=== PATIENT | female | born 1950 | race Caucasian/White ===

== ENCOUNTER 2018-05-08 01:15 | Observation (INO) ==
--- NOTE | 2018-05-08 01:55 | ED ---
HPI General Chief complaint: Shortness of Breath/Dyspnea Stated complaint: Diff breathing Time Seen by Provider: 05/08/18 01:54 Source: patient History of Present Illness HPI narrative: The patient is a 67 year old female who presents to the [facility] emergency department with a history of cough and sore throat that began a week ago. She saw Dr. Ribeiro's PA and was given a prescription of Guaiatussin and an antibiotic. She did not take the antibiotic as she was told that it was viral, however she started the Guaiatussin on Sunday. She reports that the cough seemed to be improving and was less productive. Then for the last 2 days she began to have shortness of breath at night. Her cough is productive of yellow to brown sputum. She feels like she cannot take a deep breath. She denies having any wheezing. She denies using any for being diagnosed with COPD. She reports that she does smoke a pack of cigarettes per day. The patient incidentally is also on exogenous estrogen for difficulty sleeping and hot flashes. She reports that she has been on this for years. She reports that she went through menopause in her 40s. On review of systems otherwise, she denies having any known recent fevers, neck pain, chest pain, abdominal pain, vomiting, diarrhea, urinary symptoms, or neurologic symptoms. Related Data Home Medications Medication Instructions Recorded Confirmed No Known Home Medications 05/08/18 05/08/18 Allergies Allergy/AdvReac Type Severity Reaction Status Date / Time No Known Allergies Allergy Verified 05/08/18 01:19 Review of Systems ROS Unobtainable All other systems reviewed negative except as stated in HPI [facility] Medical History Medical History Hypercholesteremia (Acute) Surgical History Surgical History H/O knee surgery (Acute) Hx of appendectomy (Acute) Social History Social History Substance History: No History of Abuse Smoking Status: Current every day smoker Tobacco Type: Cigarettes Packs Per Day: 1 Cigarettes Per Day: 20.0 How Often Do You Have a Drink Containing Alcohol: 4 or more times a week Recent Travel in [facility] within the Last 8 Weeks: No Recent Out of Country Travel within the Last 8 Weeks: No Immunization History Tetanus Immunization: Unsure Hx Influenza Vaccine This Season: No Exam HENTN Head: normocephalic and atraumatic Nose: no nasal discharge and no epistaxis Mouth: moist mucous membranes Eyes Sclera: normal sclerae Pupils: PERRL Neck Neck: trachea midline and no JVD Resp Effort & Inspection: no use of accessory muscles Auscultation: no crackles, no rhonchi and wheezes (Soft expiratory wheezes audible bilaterally. Decreased breath sounds in the bases. No rhonchi or crackles.) Cardio Rate: regular rate Rhythm: regular rhythm Heart Sounds: no murmurs GI Inspection: non-distended Palpation: soft, no hepatosplenomegaly and nontender Skin General: dry skin (warm) Neuro General: alert and awake Cranial Nerves: other (No evidence of facial asymmetry) Speech: speech normal Motor: no movement abnormalities noted Extrem General: normal to inspection, no clubbing, no cyanosis, no edema and other (No calf tenderness on palpation. Negative Homans sign. No palpable cords.) Psych Mood: congruent mood Affect: normal affect Judgment: judgment good Course Consultations Consultation #1: The patient's case including history, pertinent physical examination findings, and laboratory studies were discussed with Dr. Nj. It was agreed that the patient would be admitted to the hospitalist service. Initial Documented Vital Signs Temperature 97.8 F 05/08/18 01:19 Pulse Rate 92 H 05/08/18 01:19 Respiratory Rate 18 05/08/18 01:19 Blood Pressure 141/92 H 05/08/18 01:19 Pulse Oximetry 97 05/08/18 01:19 Last Documented Vital Signs Temperature 97.7 F 05/08/18 07:28 Pulse Rate 96 H 05/08/18 07:28 Respiratory Rate 18 05/08/18 07:28 Blood Pressure 127/90 05/08/18 07:28 Pulse Oximetry 95 05/08/18 07:28 Medical Decision Making MDM Narrative Medical decision making narrative: During the course of the patient's emergency department visit, the patient's history, examination, and differential diagnosis were reviewed with the patient. The patient was placed on a phototypesetting equipment monitor with oximetry and frequent blood pressure monitoring. The patient had IV access obtained and blood work sent for analysis. Diagnostic workup was begun in order to discern possible causes in her differential which include pulmonary embolism, versus acute coronary syndrome, versus pneumonia, versus COPD exacerbation, versus CHF. The patient was initially provided a DuoNeb 1, aspirin 324 mg p.o. 1 Laboratory studies are remarkable for a white count of 9.9, platelets 376, monocytosis at 8.1, hemoglobin of 13.3, PT 10.6, PTT 26.4, d-dimer is elevated at 0.83, CTA to rule out PE has been ordered. Chemistry is remarkable for troponin I of less than 0.02, GFR 71, chloride 110, CO2 19.9, BUN 19, BNP 1307, AST is 93, albumin 3.2. A chest x-ray showed cardiomegaly with mild congestive heart failure. Because of this the patient was given nitroglycerin 1 inch to the chest wall, Lasix 40 mg IV. CTA to rule out PE showed no evidence of pulmonary embolism, probable mild congestive heart failure with cardiomegaly small bilateral pleural effusions and mostly interstitial edema. Patient is also noted to have moderate coronary calcifications. The patient will be admitted to the hospital for new onset congestive heart failure The patient's results were discussed with the patient, including the plan of care. I explained that further testing and/ or monitoring is indicated based on the patient's history, examination, and/ or laboratory findings. Therefore, I recommended admission for additional evaluation. The patient expressed understanding and was agreeable with this plan. The patient was admitted to the hospital in stable condition and sent to a bed under the care of [facility] service. Differential Diagnosis Differential Diagnosis: pulmonary embolism, versus acute coronary syndrome, versus pneumonia, versus COPD exacerbation, versus CHF. Medical Records Medical records reviewed: Yes I reviewed the patient's medical records. Lab Data Lab results reviewed: Yes I reviewed the patient's lab results. Result diagrams: 05/08/18 02:20 05/08/18 02:20 Lab Results 05/08/18 05/08/18 05/08/18 Range/Units 02:20 02:20 02:20 WBC 9.9 (4.0-11.0) th/mm3 RBC 4.18 (4.00-5.30) mil/mm3 Hgb 13.3 (11.6-15.3) gm/dL Hct 39.2 (35.0-46.0) % MCV 93.8 (80.0-100.0) fL MCH 31.9 (27.0-34.0) pg MCHC 34.0 (32.0-36.0) % RDW 13.3 (11.6-17.2) % Plt Count 376 (150-450) th/mm3 MPV 8.0 (7.0-11.0) fL Neut % (Auto) 67.4 (16.0-70.0) % Lymph % (Auto) 21.2 (9.0-44.0) % [place] % (Auto) 8.1 H (0.0-8.0) % Eos % (Auto) 2.0 (0.0-4.0) % Baso % (Auto) 1.3 (0.0-2.0) % Neut # (Auto) 6.7 (1.8-7.7) th/mm3 Lymph # (Auto) 2.1 (1.0-4.8) th/mm3 [place] # (Auto) 0.8 (0.0-0.9) th/mm3 Eos # (Auto) 0.2 (0.0-0.4) th/mm3 Baso # (Auto) 0.1 (0.0-0.2) th/mm3 WBC Differential . Differential Comment Auto diff final PT 10.6 (9.8-11.6) sec INR 1.0 Ratio APTT 26.4 (24.3-30.1) sec D-Dimer Quant (PE/DVT) 0.83 H (0.00-0.50) mg/L FEU Sodium (136-145) meq/L Potassium (3.5-5.1) meq/L Chloride (98-107) meq/L Carbon Dioxide (21.0-32.0) meq/L Anion Gap (5-15) meq/L BUN (7-18) mg/dL Creatinine (0.50-1.00) mg/dL Estimated GFR (>89) mL/min Random Glucose (74-106) mg/dL Calcium (8.5-10.1) mg/dL Total Bilirubin (0.2-1.0) mg/dL AST (15-37) U/L ALT (10-53) U/L Alkaline Phosphatase (45-117) U/L Total Creatine Kinase (26-192) U/L CK-MB (CK-2) (0.5-3.6) ng/mL Troponin I (0.02-0.05) ng/mL B-Natriuretic Peptide 1307 H (0-100) pg/mL Total Protein (6.4-8.2) g/dL Albumin (3.4-5.0) g/dL Lipase (73-393) U/L 05/08/18 Range/Units 02:20 WBC (4.0-11.0) th/mm3 RBC (4.00-5.30) mil/mm3 Hgb (11.6-15.3) gm/dL Hct (35.0-46.0) % MCV (80.0-100.0) fL MCH (27.0-34.0) pg MCHC (32.0-36.0) % RDW (11.6-17.2) % Plt Count (150-450) th/mm3 MPV (7.0-11.0) fL Neut % (Auto) (16.0-70.0) % Lymph % (Auto) (9.0-44.0) % [place] % (Auto) (0.0-8.0) % Eos % (Auto) (0.0-4.0) % Baso % (Auto) (0.0-2.0) % Neut # (Auto) (1.8-7.7) th/mm3 Lymph # (Auto) (1.0-4.8) th/mm3 [place] # (Auto) (0.0-0.9) th/mm3 Eos # (Auto) (0.0-0.4) th/mm3 Baso # (Auto) (0.0-0.2) th/mm3 WBC Differential Differential Comment PT (9.8-11.6) sec INR Ratio APTT (24.3-30.1) sec D-Dimer Quant (PE/DVT) (0.00-0.50) mg/L FEU Sodium 140 (136-145) meq/L Potassium 4.3 (3.5-5.1) meq/L Chloride 110 H (98-107) meq/L Carbon Dioxide 19.9 L (21.0-32.0) meq/L Anion Gap 10 (5-15) meq/L BUN 19 H (7-18) mg/dL Creatinine 0.81 (0.50-1.00) mg/dL Estimated GFR 71 L (>89) mL/min Random Glucose 104 (74-106) mg/dL Calcium 8.5 (8.5-10.1) mg/dL Total Bilirubin 0.3 (0.2-1.0) mg/dL AST 93 H (15-37) U/L ALT 48 (10-53) U/L Alkaline Phosphatase 110 (45-117) U/L Total Creatine Kinase 109 (26-192) U/L CK-MB (CK-2) 1.8 (0.5-3.6) ng/mL Troponin I Less than 0.02 L (0.02-0.05) ng/mL B-Natriuretic Peptide (0-100) pg/mL Total Protein 6.7 (6.4-8.2) g/dL Albumin 3.2 L (3.4-5.0) g/dL Lipase 74 (73-393) U/L Imaging Data Radiologist's impression: Chest X-Ray 05/08/18 02:12 CONCLUSION: Mild congestive heart failure. Chest CTA 05/08/18 03:02 CONCLUSION: 1. Probable mild congestive heart failure with cardiomegaly, small bilateral pleural effusions and mostly interstitial edema. 2. Moderate coronary calcifications. ECG Data Attestation: I personally reviewed and interpreted this ECG as follows: Interpretation: The patient had an EKG done that shows a sinus rhythm with occasional ventricular premature complexes heart rate of 82, QRS duration 106 ms , QTC [address]-T wave abnormalities, T waves are inverted in V6, downsloping ST segments in V6. Discharge Plan Discharge Disposition Patient Disposition: 30 Still Patient Discharge Details Diagnosis: New onset of congestive heart failure Physicians Team ED Provider: Divya Jamison Primary Care Provider: Christian Westbrook Attending Provider: Ela Mike Other Providers: Chino Fan Status ED Status: Admitted Observation Patient
[2018-05-08 02:42] LABS: Baso # (Auto) 0.1 th/mm3 (0.0-0.2); Baso % (Auto) 1.3 % (0.0-2.0); Eos # (Auto) 0.2 th/mm3 (0.0-0.4); Hematocrit 39.2 % (35.0-46.0); Hemoglobin 13.3 gm/dL (11.6-15.3); Lymph # (Auto) 2.1 th/mm3 (1.0-4.8); Lymph % (Auto) 21.2 % (9.0-44.0); Mean Corpuscular Hemoglobin 31.9 pg (27.0-34.0); Mean Corpuscular Volume 93.8 fL (80.0-100.0); Mono # (Auto) 0.8 th/mm3 (0.0-0.9); Mono % (Auto) 8.1 % (0.0-8.0); Neut # (Auto) 6.7 th/mm3 (1.8-7.7); Neut % (Auto) 67.4 % (16.0-70.0); Platelet Count 376 th/mm3 (150-450); Red Blood Count 4.18 mil/mm3 (4.00-5.30); Red Cell Distribution Width 13.3 % (11.6-17.2); White Blood Count 9.9 th/mm3 (4.0-11.0)
[2018-05-08 02:52] LABS: Activated Partial Thrombo Time 26.4 sec (24.3-30.1); Prothrombin Time 10.6 sec (9.8-11.6)
[2018-05-08 02:53] LABS: D-Dimer 0.83 mg/L FEU (0.00-0.50)
[2018-05-08 03:01] LABS: Alanine Aminotransferase 48 U/L (10-53); Albumin 3.2 g/dL (3.4-5.0); Anion Gap 10 meq/L (5-15); Aspartate Aminotransferase 93 U/L (15-37); Blood Urea Nitrogen 19 mg/dL (7-18); Calcium 8.5 mg/dL (8.5-10.1); Carbon Dioxide 19.9 meq/L (21.0-32.0); Chloride 110 meq/L (98-107); Glomerular Filtration Rate 71 mL/min (>89); Glucose,Random 104 mg/dL (74-106); Lipase 74 U/L (73-393); Potassium 4.3 meq/L (3.5-5.1); Sodium 140 meq/L (136-145)
[2018-05-08 03:05] LABS: Alkaline Phosphatase 110 U/L (45-117); Creatine Kinase 109 U/L (26-192); Total Protein 6.7 g/dL (6.4-8.2)
--- NOTE | 2018-05-08 03:06 | XR ---
EXAM DATE: 05/08/2018 2:47 AM EDT AGE/SEX: 67 years / Female INDICATIONS: . Shortness of breath. CLINICAL DATA: This is the patient's initial encounter. Patient reports that signs and symptoms have been present for 3 days and indicates a pain score of 0/10. MEDICAL/SURGICAL HISTORY: None. None. COMPARISON: No prior exams available for comparison. FINDINGS: There is cardiomegaly. Mild edema pattern at the lung bases with small effusions. No pneumothorax. No acute bony abnormalities identified. CONCLUSION: Mild congestive heart failure. Electronically signed by: Luke Sanders MD 05/08/2018 3:05 AM EDT
[2018-05-08 03:18] LABS: Creatine Kinase MB 1.8 ng/mL (0.5-3.6)
--- NOTE | 2018-05-08 04:03 | CT ---
EXAM DATE: 05/08/2018 3:37 AM EDT AGE/SEX: 67 years / Female INDICATIONS: Shortness of breath and cough. CLINICAL DATA: This is the patient's initial encounter. Patient reports that signs and symptoms have been present for 1 week and indicates a pain score of 5/10. MEDICAL/SURGICAL HISTORY: Vertigo. None. RADIATION DOSE: 9.10 CTDI (mGy) COMPARISON: No prior exams available for comparison. TECHNIQUE: Volumetric scanning was performed using a multi-row detector CT scanner during bolus infu mateo of 55 ml Omnipaque 350 (iohexol) nonionic water-soluble contrast as a single exam dose. The beck a was post processed with a variety of visualization algorithms including full volume maximum intensi ty projection and sliding thin slab reformation. Using automated exposure control and adjustment of the mA and/or kV according to patient size, radiation dose was kept as low as reasonably achievable t o obtain optimal diagnostic quality images. DICOM format image data is available electronically for review and comparison. FINDINGS: There is interlobular septal thickening in the lungs. Mild groundglass opacity with small bilateral p leural effusions. Findings probably represent mild pulmonary edema. Heart size enlarged. Moderate cor onary calcifications. No filling defects to suggest pulmonary embolic disease. No acute findings in the upper abdomen. CONCLUSION: 1. Probable mild congestive heart failure with cardiomegaly, small bilateral pleural effusions and m ostly interstitial edema. 2. Moderate coronary calcifications. Electronically signed by: Luke Sanders MD 05/08/2018 4:01 AM EDT
[2018-05-08] MEDS ORDERED: Iohexol 350 MG/ML 50 ML Vial (for Cath Lab) IVCONTRAST ONE (04:42)
[2018-05-08] MEDS ORDERED: Acetaminophen 325 MG Tablet PO PRN (05:13)
[2018-05-08] MEDS ORDERED: Bisacodyl 10 MG Supp RECTAL PRN (05:13)
[2018-05-08] MEDS ORDERED: Temazepam 15 MG Capsule PO PRN (05:13)
--- NOTE | 2018-05-08 05:21 | P.HP ---
History of Present Illness Service: [facility] Primary Care Physician: Christian Westbrook MD Chief Complaint: SOB History of Present Illness: 67-year-old female with a past medical history significant for hyperlipidemia presents the emergency department for evaluation of shortness of breath. The patient reports that approximately 1 week ago she had URI symptoms including a sore throat and cough. She went to see her PCP last Sunday who gave her a cough syrup that did not seem to help. Approximately 2 days ago the patient reports that she started having shortness of breath worse with lying flat. She states she has been unable to sleep. She has no history of coronary artery disease or congestive heart failure. She denies any chest pain. No abdominal pain. No nausea/vomiting/diarrhea. Positive productive cough that is improving. No fever/chills. No lateralizing signs/symptoms. Inpatient Certification: I certify that the inpatient services were ordered in accordance with Medicare regulations governing the order. This includes certification that hospital inpatient services are reasonable and necessary and in the case of services not specified as inpatient-only under 42 CFR 419.22(n), that they are appropriately provided as inpatient services in accordance to with the 2-midnight benchmark under 43 CFR 412.3(e) [facility] - History History Provided By: Patient - Medical History Medical History: Medical History (Last Reviewed 05/08/18 @ 02:06 by Diyva Jamison MD) Hypercholesteremia - Surgical History Surgical History: Surgical History (Last Reviewed 05/08/18 @ 02:06 by Divya Jamison MD) H/O knee surgery Hx of appendectomy - Tobacco History Tobacco Use In Past 30 Days: Yes Smoking Status: Current every day smoker Tobacco Type: Cigarettes Packs Per Day: 1 Cigarettes Per Day: 20.0 - Alcohol History How Often Do You Have a Drink Containing Alcohol: 4 or more times a week - Substance Use History Substance History: No History of Abuse - Travel History Recent Travel in the [place] Within the Last 8 Weeks: No Recent Travel Out of the Country Within the Last 8 Weeks: No - Immunization History Tetanus Immunization: Unsure Hx Influenza Vaccine This Season: No Medications and Allergies Active Medications: Active Medications Acetaminophen (Tylenol) 650 mg PO Q4H PRN PRN Reason: Temp > 100.4 Al Hydroxide/Mg Hydroxide (Milk Of Magnesia Liq) 30 ml PO Q12H PRN PRN Reason: Mild Constipation Aspirin (Aspirin) 325 mg PO DAILY ABIOLA Bisacodyl (Dulcolax Supp) 10 mg RECTAL DAILY PRN PRN Reason: SEVERE CONSITIPATION Furosemide (Lasix Inj) 40 mg IV.PUSH BID@0900,1800 [facility] Heparin Sodium (Porcine) (Heparin Inj) 5,000 units SQ Q12H ABIOLA Lactulose (Lactulose Liq) 30 ml PO DAILY PRN PRN Reason: SEVERE CONSITIPATION Ondansetron HCl (Zofran Inj) 4 mg IV.PUSH Q6H PRN PRN Reason: NAUSEA OR VOMITING Senna/Docusate Sodium (Jess-Colace) 1 tab PO BID ABIOLA Sennosides (Senokot) 17.2 mg PO Q12H PRN PRN Reason: Moderate Constipation Sodium Chloride (Ns Flush) 2 ml IV.FLUSH UNSCH PRN PRN Reason: FLUSH AFTER USING IV ACCESS Temazepam (Restoril) 15 mg PO HS PRN PRN Reason: INSOMNIA Allergies Allergy/AdvReac Type Severity Reaction Status Date / Time No Known Allergies Allergy Verified 05/08/18 01:19 Home Medications Medication Instructions Recorded Confirmed Type No Known Home Medications 05/08/18 05/08/18 History Exam Vital signs: Vital Signs 05/08/18 01:19 05/08/18 01:24 05/08/18 02:27 Temperature 97.8 F Pulse Rate 92 H 78 92 H Respiratory Rate 18 18 Blood Pressure 141/92 H 157/104 H Pulse Oximetry 97 97 05/08/18 03:27 Temperature Pulse Rate Respiratory Rate Blood Pressure Pulse Oximetry 93 L Intake & Output 05/07/18 05/07/18 05/08/18 06:59 18:59 06:59 Weight 63.503 kg Narrative: Gen.: No acute distress Head: Normocephalic. Atraumatic. EENT: Pupils equal round and reactive to light. Nose without drainage. Airway intact. Throat without injection. Cardiovascular: Regular rate and rhythm. No murmurs, rubs or gallops. Respiratory: Bilateral crackles. Abdomen: Soft, nontender, nondistended. No peritoneal signs. Musculoskeletal: No gross deformities. No edema. Skin: No obvious rashes or erythema. Neuro: Sensory and motor grossly intact. Cranial nerves II through XII grossly intact. Psych: Appropriate mood and affect Results - Labs CBC & Chem 7: 05/08/18 02:20 05/08/18 02:20 Labs: Laboratory Results - last 24 hr 05/08/18 05/08/18 05/08/18 02:20 02:20 02:20 WBC 9.9 RBC 4.18 Hgb 13.3 Hct 39.2 MCV 93.8 MCH 31.9 MCHC 34.0 RDW 13.3 Plt Count 376 MPV 8.0 Neut % (Auto) 67.4 Lymph % (Auto) 21.2 [place] % (Auto) 8.1 H Eos % (Auto) 2.0 Baso % (Auto) 1.3 Neut # (Auto) 6.7 Lymph # (Auto) 2.1 [place] # (Auto) 0.8 Eos # (Auto) 0.2 Baso # (Auto) 0.1 WBC Differential . Differential Comment Auto diff final PT 10.6 INR 1.0 APTT 26.4 D-Dimer Quant (PE/DVT) 0.83 H Sodium Potassium Chloride Carbon Dioxide Anion Gap BUN Creatinine Estimated GFR Random Glucose Calcium Total Bilirubin AST ALT Alkaline Phosphatase Total Creatine Kinase CK-MB (CK-2) Troponin I B-Natriuretic Peptide 1307 H Total Protein Albumin Lipase 05/08/18 02:20 WBC RBC Hgb Hct MCV MCH MCHC RDW Plt Count MPV Neut % (Auto) Lymph % (Auto) [place] % (Auto) Eos % (Auto) Baso % (Auto) Neut # (Auto) Lymph # (Auto) [place] # (Auto) Eos # (Auto) Baso # (Auto) WBC Differential Differential Comment PT INR APTT D-Dimer Quant (PE/DVT) Sodium 140 Potassium 4.3 Chloride 110 H Carbon Dioxide 19.9 L Anion Gap 10 BUN 19 H Creatinine 0.81 Estimated GFR 71 L Random Glucose 104 Calcium 8.5 Total Bilirubin 0.3 AST 93 H ALT 48 Alkaline Phosphatase 110 Total Creatine Kinase 109 CK-MB (CK-2) 1.8 Troponin I Less than 0.02 L B-Natriuretic Peptide Total Protein 6.7 Albumin 3.2 L Lipase 74 - Imaging Impressions Chest X-Ray 05/08/18 02:12 CONCLUSION: Mild congestive heart failure. Chest CTA 05/08/18 03:02 CONCLUSION: 1. Probable mild congestive heart failure with cardiomegaly, small bilateral pleural effusions and mostly interstitial edema. 2. Moderate coronary calcifications. Caprini VTE Risk Assessment Caprini VTE Risk Assessment: Moderate/High Risk (score >= 2) Caprini Risk Assessment Model: Point Value = 1 Point Value = 2 Point Value = 3 Point Value = 5 Age 41-60 Minor surgery BMI > 25 kg/m2 Swollen legs Varicose veins or History of unexplained or recurrent spontaneous Oral contraceptives or hormone replacement Sepsis (< 1 month) Serious lung disease, including pneumonia (< 1 month) Abnormal pulmonary function Acute myocardial infarction Congestive heart failure (< 1 month) History of inflammatory bowel disease Medical patient at bed rest Age 61-74 Arthroscopic surgery Major open surgery (> 45 min) Laparoscopic surgery (> 45 min) Malignancy Confined to bed (> 72 hours) Immobilizing plaster cast Central venous access Age >= 75 History of VTE Family history of VTE Factor V Leiden Prothrombin [id number] Lupus anticoagulant Anticardiolipin antibodies Elevated serum homocysteine Heparin-induced thrombocytopenia Other congenital or acquired thrombophilia Stroke (< 1 month) Elective arthroplasty Hip, pelvis, or leg fracture Acute spinal cord injury (< 1 month) Prophylaxis Regimen: Total Risk Factor Score Risk Level Prophylaxis Regimen 0-1 Low Early ambulation 2 Moderate Order ONE of the following: *Sequential Compression Device (SCD) *Heparin 5000 units SQ BID 3-4 Higher Order ONE of the following medications: *Heparin 5000 units SQ TID *Enoxaparin/Lovenox 40 mg SQ daily (WT < 150 kg, CrCl > 30 mL/min) *Enoxaparin/Lovenox 30 mg SQ daily (WT < 150 kg, CrCl > 10-29 mL/min) *Enoxaparin/Lovenox 30 mg SQ BID (WT < 150 kg, CrCl > 30 mL/min) AND/OR *Sequential Compression Device (SCD) 5 or more Highest Order ONE of the following medications: *Heparin 5000 units SQ TID (Preferred with Epidurals) *Enoxaparin/Lovenox 40 mg SQ daily (WT < 150 kg, CrCl > 30 mL/min) *Enoxaparin/Lovenox 30 mg SQ daily (WT < 150 kg, CrCl > 10-29 mL/min) *Enoxaparin/Lovenox 30 mg SQ BID (WT < 150 kg, CrCl > 30 mL/min) AND *Sequential Compression Device (SCD) Assessment and Plan - Plan Assessment/plan: 1. New-onset CHF Patient with BNP of 1307 Chest x-ray significant for mild congestive heart failure CTA negative for PE but positive for mild congestive heart failure with cardiomegaly and small bilateral pleural effusions with interstitial edema Moderate coronary calcifications No history of coronary artery disease or CHF IV Lasix Echo pending Cardiology consulted, appreciate recommendations ACS rule out pending; serial troponins/EKGs 2. Hyperlipidemia Continue home statin once medications reconciled FEN N.p.o. Electrolytes: Monitor and replete as needed Heparin
[2018-05-08] MEDS: Heparin - SQ 10,000 UNITS/ML Vial SQ SCH ×2 (06:24→20:53)
[2018-05-08] MEDS: Senna/Docusate Sodium 8.6/50 MG Tablet PO SCH ×2 (08:35→20:54)
[2018-05-08] MEDS ORDERED: Ibuprofen 400 MG Tablet PO ONE (11:20)
--- NOTE | 2018-05-08 11:24 | P.PNIM ---
Subjective Interval history: Breathing better. Feels extremely hungry. Complaint of headache. No visual changes no weakness or numbness. No complaints of chest pain. Physical Exam Vital signs: Vital Signs 05/08/18 01:19 05/08/18 01:24 05/08/18 02:27 Temperature 97.8 F Pulse Rate 92 H 78 92 H Respiratory Rate 18 18 Blood Pressure 141/92 H 157/104 H Pulse Oximetry 97 97 05/08/18 03:27 05/08/18 05:39 05/08/18 06:41 Temperature 97.6 F Pulse Rate 94 H 104 H Respiratory Rate 18 18 Blood Pressure 160/85 H 129/89 Pulse Oximetry 93 L 96 05/08/18 07:28 Temperature 97.7 F Pulse Rate 96 H Respiratory Rate 18 Blood Pressure 127/90 Pulse Oximetry 95 Intake & Output 05/07/18 05/08/18 05/08/18 18:59 06:59 18:59 Weight 63.503 kg Narrative: GENERAL: This is a well-nourished, well-developed patient, in no apparent distress. CARDIOVASCULAR: Regular rate and rhythm RESPIRATORY: Relatively clear to auscultation. Breath sounds equal bilaterally. No wheezes, rales, or rhonchi. GASTROINTESTINAL: Abdomen soft, non-tender, nondistended. Normal active bowel sounds MUSCULOSKELETAL: Extremities without clubbing, cyanosis, or edema. NEURO: Alert & Oriented x4 to person, place, time, situation. Moves all ext x4 Results - Labs CBC & Chem 7: 05/08/18 02:20 05/08/18 02:20 Laboratory Results - last 24 hr 05/08/18 05/08/18 05/08/18 02:20 02:20 02:20 WBC 9.9 RBC 4.18 Hgb 13.3 Hct 39.2 MCV 93.8 MCH 31.9 MCHC 34.0 RDW 13.3 Plt Count 376 MPV 8.0 Neut % (Auto) 67.4 Lymph % (Auto) 21.2 Carter % (Auto) 8.1 H Eos % (Auto) 2.0 Baso % (Auto) 1.3 Neut # (Auto) 6.7 Lymph # (Auto) 2.1 Carter # (Auto) 0.8 Eos # (Auto) 0.2 Baso # (Auto) 0.1 WBC Differential . Differential Comment Auto diff final PT 10.6 INR 1.0 APTT 26.4 D-Dimer Quant (PE/DVT) 0.83 H Sodium Potassium Chloride Carbon Dioxide Anion Gap BUN Creatinine Estimated GFR Random Glucose Calcium Total Bilirubin AST ALT Alkaline Phosphatase Total Creatine Kinase CK-MB (CK-2) Troponin I B-Natriuretic Peptide 1307 H Total Protein Albumin Lipase 05/08/18 02:20 WBC RBC Hgb Hct MCV MCH MCHC RDW Plt Count MPV Neut % (Auto) Lymph % (Auto) Carter % (Auto) Eos % (Auto) Baso % (Auto) Neut # (Auto) Lymph # (Auto) Carter # (Auto) Eos # (Auto) Baso # (Auto) WBC Differential Differential Comment PT INR APTT D-Dimer Quant (PE/DVT) Sodium 140 Potassium 4.3 Chloride 110 H Carbon Dioxide 19.9 L Anion Gap 10 BUN 19 H Creatinine 0.81 Estimated GFR 71 L Random Glucose 104 Calcium 8.5 Total Bilirubin 0.3 AST 93 H ALT 48 Alkaline Phosphatase 110 Total Creatine Kinase 109 CK-MB (CK-2) 1.8 Troponin I Less than 0.02 L B-Natriuretic Peptide Total Protein 6.7 Albumin 3.2 L Lipase 74 - Imaging Impressions Chest X-Ray 05/08/18 02:12 CONCLUSION: Mild congestive heart failure. Chest CTA 05/08/18 03:02 CONCLUSION: 1. Probable mild congestive heart failure with cardiomegaly, small bilateral pleural effusions and mostly interstitial edema. 2. Moderate coronary calcifications. Assessment and Plan - Plan Assessment/plan: 1. New-onset CHF Patient with elevated BNP of 1307 CTA negative for PE but positive for mild congestive heart failure with cardiomegaly and small bilateral pleural effusions with interstitial edema Moderate coronary calcifications No history of coronary artery disease or CHF Continue IV Lasix Echo pending Cardiology consulted, appreciate recommendations ACS rule out pending; will continue her to review serial troponins/EKGs 2. Hyperlipidemia Continue home statin once medications reconciled 3. Elevated blood pressurestart low-dose Coreg.
[2018-05-08 12:02] LABS: Creatine Kinase 117 U/L (26-192)
--- NOTE | 2018-05-08 13:04 | MB ---
cc: Chino Fan MD DATE: 05/08/2018 HISTORY OF PRESENT ILLNESS: Rachel is a very pleasant 67-year-old lady with no significant past medical history, who presents with a chief complaint of at least moderate to severe dyspnea, found to have elevated BNP. She is . Her approximately a year and a half ago. She has recently moved here from [place] and lives in [facility] year round. Currently, she is resting comfortably, sitting up in bed in no acute distress. Denies chest pain, fevers, chills, cough, GI or bleeding, PND, orthopnea, syncope or dizziness. PAST MEDICAL HISTORY: Per history of present illness. She also has a history of hyperlipidemia. PAST SURGICAL HISTORY: Status post knee surgery and appendectomy. ALLERGIES: NONE. MEDICATIONS: 1. Aspirin 325 daily. 2. Coreg 3.25 b.i.d. 3. Lasix 40 IV b.i.d. 4. Heparin 5000 subcutaneous every 12 hours. SOCIAL HISTORY: She denies tobacco use. PHYSICAL EXAMINATION: VITAL SIGNS: Temperature 97.7, pulse 96, blood pressure 127/90, sats 95% on room air. GENERAL: She is alert, oriented x 3, in no acute distress. NECK: Supple. No JVD. No bruit. CARDIOVASCULAR: S1, S2. No murmurs, rubs or gallops. LUNGS: Clear to auscultation bilaterally. ABDOMEN: Soft, nontender and nondistended with positive bowel sounds. EXTREMITIES: No lower extremity edema. LABORATORY DATA: White count 9.9, hemoglobin 13.3, hematocrit 39.2, platelet count 376. INR is 1.0. Sodium 140, potassium 4.3, chloride 110, bicarbonate 19.9, BUN 19, creatinine 0.81. Troponin less than 0.02 x 2. The BNP is 1307. IMAGING STUDIES: Chest x-ray, mild congestive heart failure. CTA of the chest, probable mild congestive heart failure with cardiomegaly, small bilateral pleural effusions and mostly interstitial edema. Moderate coronary calcifications. EKG: Normal sinus rhythm at 82 beats per minute late R-wave transition, PVCs. DIAGNOSES: 1. Decompensated congestive heart failure. 2. Coronary artery disease. 3. Dyspnea. 4. Ventricular ectopy. 5. Pleural effusions. DISCUSSION: I have recommended to the patient right and left heart catheterization due to the presence of coronary artery disease on CTA of the chest and new onset decompensated congestive heart failure. Plan is to perform catheterization on 05/09/2018. Otherwise, agree with diuresis and aspirin. Follow up daily BNP, BMP, magnesium. MD IZABEL Paulson/MORIAH , 12:30 PM , 01:02 PM
--- NOTE | 2018-05-08 14:45 | ECG ---
Date Performed: 05/08/2018 Time Performed: 02:21:44 PTAGE: 67 years EKG: Sinus rhythm WITH FIRST DEGREE AV BLOCK WITH OCCASIONAL VENTRICULAR PREMATURE COMPLEXES LOW QRS VOLTAGE IN EXTREM ITY LEADS INTRAVENTRICULAR CONDUCTION DELAY NONSPECIFIC ST & T-WAVE ABNORMALITY ABNORMAL ECG WARNING: DATA QUALITY MAY AFFECT INTERPRETATION NO PREVIOUS TRACING DOCTOR: Malcolm Fernandez Interpretating Date/Time 05/08/2018 14:44:09
[2018-05-08 16:21] LABS: Creatine Kinase 129 U/L (26-192)
--- NOTE | 2018-05-08 17:01 | ECHRPT ---
Indication: Heart failure, unspecified CONCLUSIONS The left ventricular systolic function is severely reduced with an estimated ejection fraction in th e range of 30-35%. Doppler parameters are consistent with a pseudonormal left ventricular filling pattern with concomin ant abnormal relaxation and increased filling pressure (grade 2 diastolic dysfunction). Trace mitral valve regurgitation. There is trace tricuspid valve regurgitation. BP: / HR: 77 Rhythm: Sinus MEASUREMENTS (Male / Female) Normal Values Technical Quality:Fair 2D ECHO LV Diastolic Diameter PLAX 4.4 cm 4.2 - 5.9 / 3.9 - 5.3 cm LV Systolic Diameter PLAX 3.7 cm IVS Diastolic Thickness 0.9 cm 0.6 - 1.0 / 0.6 - 0.9 cm LVPW Diastolic Thickness 0.9 cm 0.6 - 1.0 / 0.6 - 0.9 cm LV Relative Wall Thickness 0.4 LVOT Diameter 1.9 cm M-MODE Aortic Root Diameter MM 3.5 cm LA Systolic Diameter MM 2.9 cm LA Ao Ratio MM 0.8 AV Cusp Separation MM 2.2 cm DOPPLER AV Peak Velocity 94.1 cm/s AV Peak Gradient 3.5 mmHg LVOT Peak Velocity 59.3 cm/s LVOT Peak Gradient 1.4 mmHg AV Area Cont Eq pk 1.8 cm Mitral E Point Velocity 55.0 cm/s Mitral A Point Velocity 61.9 cm/s Mitral E to A Ratio 0.9 LV E' Lateral Velocity 4.3 cm/s Mitral E to LV E' Lateral Ratio 12.8 LV E' Septal Velocity 2.9 cm/s Mitral E to LV E' Septal Ratio 18.8 TR Peak Velocity 154.0 cm/s TR Peak Gradient 9.5 mmHg Right Atrial Pressure 10.0 mmHg Pulmonary Artery Systolic Pressu 19.5 mmHg Right Ventricular Systolic Press 19.5 mmHg FINDINGS LEFT VENTRICLE The left ventricular systolic function is severely reduced with an estimated ejection fraction in th e range of 30-35%. There was limited left ventricular wall motion assessment due to poor endocardial visualization. Wall thickness is normal. Doppler parameters are consistent with a pseudonormal left ventricular filling pattern with concomin ant abnormal relaxation and increased filling pressure (grade 2 diastolic dysfunction). RIGHT VENTRICLE The right ventricle was not well visualized. LEFT ATRIUM The left atrial size is mildly dilated. RIGHT ATRIUM The right atrial size is mildly dilated. ATRIAL SEPTUM Normal atrial septal thickness AORTA The aortic root and proximal ascending aorta are not well visualized. MITRAL VALVE Grossly normal mitral valve. No mitral valve stenosis. Trace mitral valve regurgitation. AORTIC VALVE The aortic valve is not well visualized. No aortic valve regurgitation. No aortic valve stenosis. TRICUSPID VALVE Grossly normal There is trace tricuspid valve regurgitation. The estimated pulmonary arterial pressure is 19.5 mmHg. PULMONARY VALVE No pulmonary valve regurgitation or stenosis. VESSELS The inferior vena cava is normal in size. PERICARDIUM No pericardial effusion. Buck Parikh DO (Electronically Signed) Final Date:08 May 2018 16:59
[2018-05-08 23:59] VITALS: RESP 16
[2018-05-09] MEDS: Heparin - SQ 10,000 UNITS/ML Vial SQ SCH (05:47)
[2018-05-09] MEDS ORDERED: Aspirin 325 MG Tablet PO SCH (06:00)
[2018-05-09 07:19] LABS: Baso # (Auto) 0.2 th/mm3 (0.0-0.2); Baso % (Auto) 1.4 % (0.0-2.0); Eos # (Auto) 0.3 th/mm3 (0.0-0.4); Eos % (Auto) 2.8 % (0.0-4.0); Hematocrit 47.8 % (35.0-46.0); Lymph # (Auto) 2.2 th/mm3 (1.0-4.8); Lymph % (Auto) 20.5 % (9.0-44.0); Mean Corpuscular HGB Conc 33.5 % (32.0-36.0); Mean Corpuscular Hemoglobin 31.9 pg (27.0-34.0); Mean Platelet Volume 8.4 fL (7.0-11.0); Mono # (Auto) 0.9 th/mm3 (0.0-0.9); Mono % (Auto) 8.3 % (0.0-8.0); Neut # (Auto) 7.2 th/mm3 (1.8-7.7); Platelet Count 472 th/mm3 (150-450); Red Blood Count 5.04 mil/mm3 (4.00-5.30); Red Cell Distribution Width 13.5 % (11.6-17.2); White Blood Count 10.8 th/mm3 (4.0-11.0)
[2018-05-09 07:33] LABS: Calcium 9.3 mg/dL (8.5-10.1); Carbon Dioxide 30.8 meq/L (21.0-32.0); Potassium 4.1 meq/L (3.5-5.1)
[2018-05-09 08:42] VITALS: O2SAT 96
[2018-05-09] MEDS: Senna/Docusate Sodium 8.6/50 MG Tablet PO SCH (10:46)
[2018-05-09 11:55] VITALS: BP 103/69; PULSE 80; TEMP 98.1
--- NOTE | 2018-05-09 14:48 | P.PN ---
Subjective Interval history: Follow-up visit new onset CHF. Patient seen and examined today. Friend at the bedside. Patient states that she is doing a lot better. States she is very hungry waiting for the cardiac cath to be done. Denies pain and discomfort. Denies SOB/ dyspnea. Denies chest pain, palpitations, headaches, dizziness. Denies fevers, chills, n/v/d. Denies dysuria. Physical Exam Vital signs: Vital Signs 05/08/18 16:00 05/08/18 19:32 05/08/18 23:58 Temperature 97.5 F L 98.4 F 98.6 F Pulse Rate 80 86 81 Respiratory Rate 18 17 16 Blood Pressure 119/78 121/72 116/75 Pulse Oximetry 96 94 L 94 L 05/09/18 03:37 05/09/18 08:00 05/09/18 11:54 Temperature 98.3 F 98.3 F 98.1 F Pulse Rate 89 96 H 80 Respiratory Rate 16 16 16 Blood Pressure 110/68 133/85 103/69 Pulse Oximetry 95 96 96 Intake & Output 05/08/18 05/09/18 05/09/18 18:59 06:59 18:59 Intake Total 720 / 720 Balance 720 / 720 Intake: Oral 720 / 720 Other: # Voids 1 4 Narrative: GENERAL: This is a well-nourished, well-developed patient, in no apparent distress. SKIN: Warm and dry HEENT: Normocephalic. Pupils equal round and reactive. Nose without bleeding. Airway patent. NECK: Trachea midline. No JVD. Supple. CARDIOVASCULAR: Regular rate and rhythm with 2/6 murmurs, gallops, or rubs. RESPIRATORY: Clear to auscultation. Breath sounds equal bilaterally. No wheezes , rales, or rhonchi. GASTROINTESTINAL: Abdomen soft, non-tender, nondistended. Bowel Sounds normoactive x4. MUSCULOSKELETAL: Extremities without clubbing, cyanosis, or edema. NEUROLOGICAL: Awake and alert. Oriented to time, place, person. No focal neuro deficit. Moves all extremities. Normal speech. Results - Labs CBC & Chem 7: 05/09/18 06:25 05/09/18 06:25 Laboratory Results - last 24 hr 05/08/18 05/09/18 05/09/18 14:37 06:25 06:25 WBC 10.8 RBC 5.04 Hgb 16.0 H D Hct 47.8 H MCV 95.0 MCH 31.9 MCHC 33.5 RDW 13.5 Plt Count 472 H MPV 8.4 Neut % (Auto) 67.0 Lymph % (Auto) 20.5 Vernon % (Auto) 8.3 H Eos % (Auto) 2.8 Baso % (Auto) 1.4 Neut # (Auto) 7.2 Lymph # (Auto) 2.2 Vernon # (Auto) 0.9 Eos # (Auto) 0.3 Baso # (Auto) 0.2 WBC Differential . Differential Comment Auto diff final Sodium 140 Potassium 4.1 Chloride 103 Carbon Dioxide 30.8 D Anion Gap 6 BUN 25 H Creatinine 1.09 H Estimated GFR 50 L Random Glucose 96 Calcium 9.3 D Total Creatine Kinase 129 Troponin I Less than 0.02 L Assessment and Plan - Assessment (1) New onset of congestive heart failure Code(s): I50.9 - Heart failure, unspecified Status: Acute - Plan 67-year-old female with a past medical history significant for hyperlipidemia presents the emergency department for evaluation of shortness of breath. New-onset CHF, systolic -Patient with BNP of 1307 -Chest x-ray significant for mild congestive heart failure -CTA negative for PE but positive for mild congestive heart failure with cardiomegaly and small bilateral pleural effusions with interstitial edema. Moderate coronary calcifications -No history of coronary artery disease or CHF -IV Lasix, switch to PO when DC -Echo showed left ventricular systolic function severely reduced with estimated EF 30-35%. -Cardiology consulted, appreciate recommendations, plan for cardiac cath today -ACS ruled out serial troponins negative, cardiac enzymes negative. -Start on entresto lowest dose -On BB, Lasix, ASA -Discussed extensively with patient the diagnosis of CHF including lifestyle modification and management of CHF and outpatient. Hyperlipidemia -Continue home statin once medications reconciled DVT prop heparin Discharge patient to home Condition on discharge: Improved Cardiac Diet as tolerated Ad Aaliyah activity Rx written: As Per DC plan Follow-up with primary care physician, Cardiology Code Status: Full Code Discussed Condition With: Patient, Nursing, Dr. Lombardo Discharge Planning: Plan to DC home when clinically improved. Cleared by Cardiology
[2018-05-09] MEDS ORDERED: Heparin/NS PF Inj 1,000 ML ONE (15:02)
[2018-05-09] MEDS ORDERED: fentaNYL Citrate Inj 100 MCG/2 ML Ampul ONE (15:33)
--- NOTE | 2018-05-09 16:05 | CATHPROC ---
[facility] HIS Report Study Information Study Number Admission Scheduled Start Study Start [id number] May 08 2018 4:41AM 05/09/2018 May 09 2018 2:59PM [facility] Cardiac Catheterization Admit Source Facility Department Emergency department [facility] - Sand System Operator Physician and Clinical Staff Initial [place] [employer] Indirect Fire Crewmember Jett Garcia,DIANA Recorder Deyanira Charles,RT(R) (BS) Scrub Annalisa Castro ,RT(R) Scrub Student, TELEMARKETING FUNDRAISER/RT(R) Procedures Performed Procedure Location (Site) Vessel Name Coronary Angiograms LCA Left Coronary Coronary Angiograms RCA Right Coronary LV Gram-hand inj. LV LV Ventricle Equipment Time Hosiery Knitter Description Size Mfg Part Number Used/Scraped CATHETER, FR5 SWAN YARI 15:20 Defense Mobile FR 5 [id number] *[id number] Used MONITOR TRANSDUCER, TRUWAVE [id number] 15:05 [employer] ECHEVARRIA * Used W/STOCKCOCK *[id number] 538-476 *[id number] [id number] *[id number] [id number] *[id number] [id number] *[id number] 15:05 [employer] BLANKET,WARM AIR CCL * Used *[id number] 15:05 [employer] PACK, CCL CUSTOM * Used *[id number] 15:05 [employer] PACER PEN, SKIN DUAL W/ RULER * Used *[id number] 15:41 [employer] MEDICAL SHEATH, FR5.5 PRELUDE 11CM FR 5 [id number] Used [id number] 15:05 [employer] MEDICAL WIRE, 3MMJ .035 180CM 180CM Used *[id number] 15:05 NAMIC MANIFOLD, 4 PORT * Used *[id number] 15:05 NYCOMED OMNIPAQUE, 350 MG, 150ML 150ML [id number] Used [id number] 15:05 TERUMO MEDICAL SHEATH, FR4 TERUMO (10CM) FR 4 Used *[id number] 15:20 [employer]UMO MEDICAL SHEATH, FR5 TERUMO (10CM) FR 5 Used *[id number] History: Current Medications Medication Dosage/Unit Route Frequency Last Date/Time Taken Beta Dion ASA History: Allergies Allergy Reaction No Known Allergies History: Risk Factors Family History of Hypertension Dyslipidemia Previous [place] Previous Heart Failure Premature CAD Yes Yes No No No Prior Valve Prior PCI Prior CABG Surgery No No No Cerebrovascular Peripheral Artery Chronic Lung On Dialysis Diabetes Disease Disease Disease No No No No No History: Stress Tests Stress or Imaging Studies Performed No History: Other Current Smoker Method Packs a Day Years Used Pack Years Yes Cigarettes 1 46 46 Labs Hgb (g/dl) Hct (%) WBC (l/cumm) Platelets (thousands) 11.60-17.00 35.00-51.00 4.00-11.00 150.00-450.00 16.0 47.8 10.8 472 Glucose (mg/dl) BUN (mg/dl) Creatinine (mg/dl) BUN:Creatinine (1:x) 74.00-106.00 7.00-18.00 0.50-1.30 10.00-20.00 96 25 1.0 25 Na (meq/l) K (meq/l) 136.00-145.00 3.50-5.10 140 4.1 INR (PTT:PT) 0.90-1.10 1 Troponin I (ng/ml) CPK (u/l) CPK-MB (ng/ML) 0.02-0.05 26.00-308.00 0.50-3.60 0.02 129 1.8 Medication Medication Total Dose (Bolus/Oral) Medication Total Dosage/Unit 1% XYLOCAINE 20 mL FENTANYL 25 mcg VERSED 1 mg Medications (Bolus/Oral) Medication Time Given Dosage/Unit Administered By Reason VERSED 05/09/2018 3:33:34 PM 1 mg Jett Garcia 1 mg VERSED given in lab by Jett Garcia RN in Left Antecubital via Peripheral IV. FENTANYL 05/09/2018 3:33:40 PM 25 mcg Jett Garcia 25 mcg FENTANYL given in lab by Jett Garcia RN in Left Antecubital via Peripheral IV. 1% XYLOCAINE 05/09/2018 3:34:41 PM 20 mL Jett Garcia 20 mL 1% XYLOCAINE given in lab by Jett Garcia RN via Subcutaneous. Medication (Drip) Medication Time Given Dosage/Unit Concentration/Unit Diluent (ml) Solut ion IV Solutions 05/09/2018 2:59:34 PM 0 mL (IV) 500 NaCl .9 IV Solutions given in lab by Jett Garcia, RN in Left Antecubital via Peripheral IV. Pump/Drip Flow = 30 ml/hr using NaCl .9. Initial Case Assessment Cardiovascular HR Rhythm NIBP Chest Pain 79 reg 117/79 0 Edema Present Skin color Skin None Normal Warm Dry Circulatory - Right Pulses Dorsalis Pedis Femoral 2 2 Scale (0,1,2,3,4,d) Circulatory - Left Pulses Dorsalis Pedis Femoral 2 2 Scale (0,1,2,3,4,d) Circulatory - Lower Extremities Color Lower Right Color Lower Left Normal Normal Neurological State Oriented to time-place- Alert Moves all extremities person Respiration - General Respiration Rate SpO2 (%) O2 (lpm) (B/min) 20 94 0 Chronological Log Time Study Chronological Log 14:59:21 Patient arrived via Bed. 14:59:22 Patient Name, D.O.B, / Armband Verified By R.N. 14:59:23 Consent signed by the physician and the patient and verified by the Sand System Operator staff. 14:59:24 Pre-op and post- op instructions given; patient acknowledges understanding of instructions. 14:59:26 Presedation assessment performed by Sand System Operator RN. 14:59:28 Patient has been NPO for More than 6Hrs. 14:59:29 Skin Breakdown none per pt 14:59:30 Patient Warmer Placed on the Table. 14:59:33 Lyla Prominences Protected 14:59:33 A # 20 IV was noted in the Antecubital (left). Grade = 0 IV Solutions given in lab by Jett Garcia, RN in Left Antecubital via Peripheral IV. Pump/Dri p Flow = 30 ml/hr using 14:59:34 NaCl .9. 14:59:34 History and physical on the chart or being dictated. Assessment: Initial Case, HR=79 BPM, Rhythm=reg, RFAS=401/79 mmhg, Chest Pain=0, Edema=None, Co alison=Normal, Skin = Warm, Dry Right Pulses: Royal Ped=2, Femoral=2 Left Pulses: Royal Ped=2, Femoral=2 14:59:37 Lower Right Extremities: Color=Normal Lower Left Extremities: Color=Normal Neurological: State=Alert, Ox3, WHITE Respiration: Resp=20 B/min, SpO2=94 %, O2=0 lpm Vitals capture started with the following parameters, Patient=Adult, Interval=5 min, Initial Pr ijxcdj=364 mmHg, 15:05:44 Deflation Rate=5 mmHg, Cuff placed on Left Arm 15:06:28 HR=79 bpm, JPKF=544/79 mmhg, SpO2=94.0 %, Resp=22 B/min, Pain=0, Oscar=10, Smiley=2 15:10:05 Bilateral groins prepped with 2% chlorhexidine, and draped after a 3 minute waiting time. 15:11:16 HR=82 bpm, BLNB=612/94 mmhg, SpO2=97.0 %, Resp=14 B/min, Pain=0, Oscar=10, Smiley=2 15:16:05 Pressure channel 1 zeroed. 15:16:20 HR=77 bpm, JYHD=167/90 mmhg, SpO2=93.0 %, Resp=20 B/min, Pain=0, Oscar=10, Smiley=2 15:17:12 Reference ECG taken 15:18:41 MD paged 15:18:57 MD responded 15:21:23 HR=71 bpm, RJCK=195/83 mmhg, SpO2=94.0 %, Resp=17 B/min, Pain=0, Oscar=10, Smiley=2 15:26:20 HR=74 bpm, ZEST=799/88 mmhg, SpO2=93.0 %, Resp=20 B/min, Pain=0, Oscar=10, Smiley=2 15:27:53 MD arrived. 15:31:23 HR=69 bpm, MSYX=252/81 mmhg, SpO2=94.0 %, Resp=18 B/min, Pain=0, Oscar=8, Smiley=2 15:33:34 1 mg VERSED given in lab by Jett Garcia, RN in Left Antecubital via Peripheral IV. 15:33:40 25 mcg FENTANYL given in lab by Jett Garcia, RN in Left Antecubital via Peripheral IV. Time Out. Correct patient, correct procedure, correct physician, labs, allergies, and equipment verified with veterinarian laboratory animal care 15:34:39 team present. Fire risk assesment completed (see hard stop sheet for coding). Time Out Conc urred by MD and individual staff in procedure. 15:34:41 20 mL 1% XYLOCAINE given in lab by Jett Garcia RN via Subcutaneous. 15:34:42 Case Start 15:35:54 Access site was Right Femoral Artery. 15:36:22 HR=73 bpm, VPRU=961/82 mmhg, SpO2=94.0 %, Resp=19 B/min, Pain=0, Oscar=8, Smiley=2 15:37:04 A SHEATH, FR4 TERUMO (10CM) FR 4 was advanced into the Fem Art (right) using the Percutaneo us technique. 15:37:41 Saturation: Site=Ao (Aorta) , O2=91.5 %, Hgb=16 gm/dl, Condition=Condition 1. Used in [facility]. 15:38:38 Access site was Right Femoral Vein. 15:38:47 A SHEATH, FR5 TERUMO (10CM) FR 5 was advanced into the Fem Vein (right) using the Percutane ous technique. A SHEATH, FR5.5 PRELUDE 11CM FR 5 was exchanged in the Fem Vein (right). This was necessary in order to 15:40:51 accomodate a larger catheter. 15:41:13 A CATHETER, FR5 SWAN YARI MONITOR FR 5 was inserted via Fem Vein (right) 15:41:23 HR=76 bpm, CTJT=668/80 mmhg, SpO2=90.0 %, Resp=18 B/min, Pain=0, Oscar=8, Smiley=2 Recorded Pressure: MPA, HR=86, Condition=Condition 1 15:43:13 (Main Pulmonary Artery) MPA 12/03/11 Recorded Pressure: PCW, HR=81, Condition=Condition 1 15:43:38 (Pulmonary Capillary Wedge) PCW 8/7/3 15:44:13 Saturation: Site=PA (Pulmonary Artery) , O2=58.6 %, Hgb=16 gm/dl, Condition=Condition 1. Us ed in calculation. Recorded Pressure: RV, HR=77, Condition=Condition 1 15:44:43 (Right Ventricle) RV 21/-2/1 Recorded Pressure: RA, HR=75, Condition=Condition 1 15:44:56 (Right Atrium) RA 2/0/-1 15:45:20 [place] Yari Catheter Removed 15:46:12 Saturation: Site=RA (Right Atrium) , O2=62.9 %, Hgb=16 gm/dl, Condition=Condition 1. Used i n calculation. 15:46:20 HR=80 bpm, QREK=019/78 mmhg, SpO2=92.0 %, Resp=19 B/min, Pain=0, Oscar=8, Smiley=2 A JR 4.0 INFINITI CATHETER FR 4 was advanced over a wire. OMNIPAQUE, 350 MG, 150ML 150ML was us ed for 15:46:24 injections. Recorded Pressure: LV, HR=82, Condition=Condition 1 15:47:09 (Left Ventricle) LV 111/0/5 15:47:17 The LV was manually injected with 8 cc's and visualized. OMNIPAQUE, 350 MG, 150ML 150ML use d. Recorded Pressure: LV, Ao, HR=82, Condition=Condition 1 15:47:23 (Left Ventricle) LV 120/2/7, (Aorta) Ao 122/76/95 15:49:24 Catheter was removed A JL 4.0 INFINITI CATHETER FR 4 was advanced over a wire. OMNIPAQUE, 350 MG, 150ML 150ML was us ed for 15:49:25 injections. 15:50:07 The LCA was injected and visualized at various angles. OMNIPAQUE, 350 MG, 150ML 150ML used . Recorded Pressure: Ao, HR=81, Condition=Condition 1 15:50:55 (Aorta) Ao 119/75/93 15:51:21 HR=83 bpm, RWMK=479/83 mmhg, SpO2=92.0 %, Resp=21 B/min, Pain=0, Oscar=8, Smiley=2 15:52:09 Catheter was removed A AL 2 INFINITI CATHETER FR 4 was advanced over a wire. OMNIPAQUE, 350 MG, 150ML 150ML was used for 15:52:10 injections. 15:52:53 Catheter was removed A 3DRC INFINITI CATHETER FR 4 was advanced over a wire. OMNIPAQUE, 350 MG, 150ML 150ML was used for 15:53:14 injections. 15:55:20 The RCA was injected and visualized at various angles. OMNIPAQUE, 350 MG, 150ML 150ML used . 15:56:20 Catheter was removed 15:56:22 Case End (Physician broke scrub) 15:56:47 HR=78 bpm, OLYT=179/74 mmhg, SpO2=93.0 %, Resp=18 B/min, Pain=0, Oscar=8, Smiley=2 15:56:52 Catheter(s) removed without difficulty 15:56:54 Sheath(s) left in place, will be removed in Holding Area 15:57:02 Sterile dressing applied to site 15:57:04 Bedside Report will be given. 15:57:06 A Left and Right Heart Cath was performed. 16:00:04 Sterile dressing applied to site End Study - Contrast Media Used In Study Contrast Total Opened (mL) Total Used (mL) Total Wasted (mL) Omnipaque 40 40 0 End Study - Maximum Contrast Load Max Contrast Load (mL) 317.5 End Study - Radiation Exposure Fluoro Time (minutes) 4.0 End Study - Patient Disposition Complications Transferred To Interventional Outcome No Sand System Operator Holding No attempt made
--- NOTE | 2018-05-09 16:46 | MR ---
cc: Chino Fan MD, Arthur W MD DATE: 05/09/2018 PROCEDURE: Right heart catheterization, left heart catheterization, left ventriculography, coronary angiography INDICATION: Cardiomyopathy, new onset congestive heart failure, coronary artery disease, [place] [employer] class IV anginal equivalent, [place] [employer] class IV angina. INDICATIONS OF PROCEDURE: The patient was brought to the cardiac catheterization laboratory, prepped and draped in the usual sterile fashion. 10 mL of 1% lidocaine was used to locally anesthetize the right common femoral. A 4-Cambodian sheath placed in right common femoral artery, 5-1/2 Camb[place]ian sheath placed in right common femoral vein. Right heart catheterization was performed first on room air with the following findings: Pulmonary capillary wedge pressure 8/7/3, PA pressure 22/5/11, RV pressure 21/ 0/1, RA pressure 2/0/0. Femoral artery sat on room air was 91.5%, PA sat was 58.6% and RA sat 62.9%. Cardiac output by Stiven 2.8 liters per minute, cardiac index by Stiven 1.7 liters per meters squared per minute, SVR 2658. Left heart catheterization was then performed with a 4-Cambodian JR4, JL4 and 3DRC catheters with the following findings: LV pressure is 110/2/4, EF 25%, global hypokinesis. The left main coronary artery has no significant disease angiographically. Left circumflex vessel has an ostial 40% stenosis. There is mild diffuse disease in the mid segment up to 30% angiographically. The first obtuse marginal vessel is a large vessel, 3-3.5 mm in diameter, with a proximal 30% stenosis. The second obtuse marginal vessel is a large vessel. 3.3 mm in diameter, mild disease in the mid segment up to 10% angiographically. There are 2 small distal posterolateral arteries, which have no significant disease angiographically. The LAD has mild diffuse disease in the proximal mid segment up to 20% angiographically. The proximal LAD has a 40% proximal stenosis. First diagonal artery is medium to large sized vessel with no significant obstructive disease. The right coronary artery is dominant, has a 60% proximal stenosis, 60% diffuse disease in the mid segment. Reference vessel diameter 3.5 mm. CONCLUSION: 1. Angiographically mild to moderate 3-vessel coronary artery disease in a right dominant system as detailed above. 2. Nonischemic cardiomyopathy, ejection fraction 20-25% with cardiac index of 1.7 liters per minute per meters square per minute. 3. The patient is euvolemic by right heart catheterization. RECOMMENDATIONS: Recommend optimal medical therapy with Coreg, Altace, Aldactone as tolerated and then diuretics as needed and we will also consult case management to consider transfer for heart transplant evaluation. MD IZABEL Paulson/SA , 04:05 PM , 04:45 PM
[2018-05-09] MEDS ORDERED: Spironolactone 25 MG Tablet PO SCH (18:00)
[2018-05-10] MEDS ORDERED: Furosemide 20 MG Tablet PO SCH (09:00)
== END 2018-05-09 18:16 | disposition home or self-care (01) ==
LOC: NEPE 01:15 → HCIS 01:15 → NEDA 04:41 → INTOOBSV 04:41 → NEDA 06:39 → NEPHCDU 16:41 → HCIS 05-09 15:53
PROVIDERS: ADMIT Internal Medicine; ATTEND Internal Medicine